=== PATIENT | female | born 1940 | race Caucasian/White ===

== ENCOUNTER 2017-12-26 10:46 | Emergency (ER) | payer MEDICARE ==
[~2017-12-26] VITALS: Ht 154.9 cm; Wt 45.5 kg
[~2017-12-26 10:46] MED LIST: CARV-50 PO; CELE-193 PO; CYCL10TA10 PO; DESL5TAB PO; ENZY1CAP5 PO; FLUT1DIS4 INH; FURO40TA4 PO; POTA20TA10 PO; PRIM50TA42 PO; RIVA15TA PO; TRACE MINERAL PO
[2017-12-26 11:24] LABS: BASOPHILS % (AUTO) 0.8 % (0-1); EOSINOPHILS # (AUTO) 0.4 X10'3 (0-0.9); EOSINOPHILS % (AUTO) 7.7 % (0-6); HEMATOCRIT 35.8 % (35.0-45.0); HEMOGLOBIN 12.4 g/dl (12.0-16.0); LYMPHOCYTES # (AUTO) 0.9 X10'3 (1.1-4.8); LYMPHOCYTES % (AUTO) 15.3 % (21-51); MEAN CORPUSCULAR HEMOGLOBIN 32.6 PG (27.0-31.0); MEAN CORPUSCULAR HGB CONC 34.6 % (33.0-36.5); MEAN CORPUSCULAR VOLUME 94.4 FL (78-98); MONOCYTES # (AUTO) 0.8 X10'3 (0-0.9); MONOCYTES % (AUTO) 13.7 % (2-12); NEUTROPHILS # (AUTO) 3.5 X10'3 (1.8-7.7); NEUTROPHILS % (AUTO) 62.5 % (42-75); PLATELET COUNT 208 X10'3 (140-440); RED CELL DISTRIBUTION WIDTH 13.8 % (11.5-14.5); WHITE BLOOD COUNT 5.6 X10'3 (4.5-11.0)
[2017-12-26 11:53] LABS: ALANINE AMINOTRANSFERASE 30 U/L (12-78); ALBUMIN 3.9 G/DL (3.4-5.0); ALBUMIN/GLOBULIN RATIO 1.1 (1.1-1.5); ALKALINE PHOSPHATASE 63 IU/L (46-116); ANION GAP 10 (8-16); ASPARTATE AMINO TRANSFERASE 21 U/L (10-37); BILIRUBIN,TOTAL 0.3 MG/DL (0.1-1.0); BLOOD UREA NITROGEN 24 MG/DL (7-18); BUN/CREATININE RATIO 26.7 (6.6-38.0); CALCIUM 9.1 MG/DL (8.5-10.1); CHLORIDE 107 MMOL/L (99-107); GLUCOSE 96 MG/DL (70-104); LIPASE 161 U/L (73-393); MAGNESIUM 2.1 MG/DL (1.5-2.4); POTASSIUM 4.4 MMOL/L (3.5-5.1); SODIUM 144 MMOL/L (135-145); TOTAL CARBON DIOXIDE 27.3 MMOL/L (24-32); TOTAL PROTEIN 7.6 G/DL (6.4-8.2); eGFR 61 ML/MIN
[2017-12-26] MEDS ORDERED: hydrALAZINE 20mg/ml inj. IV ONE (12:45)
[2017-12-26 13:56] VITALS: BP 174/72
== END 2017-12-26 14:01 | disposition home or self-care (01) ==
LOC: ER 10:47
DX: I10 Essential (primary) hypertension (principal); I48.91 Unspecified atrial fibrillation; J45.909 Unspecified asthma, uncomplicated; M19.90 Unspecified osteoarthritis, unspecified site; Z91.011 Allergy to milk products; Z79.899 Other long term (current) drug therapy; Z88.6 Allergy status to analgesic agent
CPT/HCPCS: 36415; 71045; 80053; 83690; 83735; 83880; 84484; 85025; 93005; 96374; 99285; J0360

== ENCOUNTER 2018-02-02 20:10 | Emergency (ER) | payer MEDICARE ==
[~2018-02-02] VITALS: Ht 154.9 cm; Wt 44.0 kg
[2018-02-02 20:50] VITALS: BP 189/74
== END 2018-02-02 20:52 | disposition home or self-care (01) ==
LOC: ER 20:11
DX: I10 Essential (primary) hypertension (principal); I48.91 Unspecified atrial fibrillation; J45.909 Unspecified asthma, uncomplicated; Z88.6 Allergy status to analgesic agent; Z88.8 Allergy status to other drugs, medicaments and biological substances; Z91.011 Allergy to milk products; Z79.899 Other long term (current) drug therapy
CPT/HCPCS: 99284

== ENCOUNTER 2018-06-24 10:54 | Emergency (ER) | payer MEDICARE ==
[~2018-06-24] VITALS: Ht 154.9 cm; Wt 40.9 kg
[2018-06-24] MEDS ORDERED: acetaminophen 325mg tablet PO ONE (12:05)
[2018-06-24] MEDS ORDERED: LIDOcaine 1.5% w/epinephrine 1:200,000 5ml ampul IJ ONE (12:20)
[2018-06-24] MEDS ORDERED: TETanus/Pertussis (Acell)/Diphther VAC/PF (Tdap-Adult) 0.5ml syringe IM ONE (12:20)
[2018-06-24] MEDS ORDERED: bacitracin 15gm ointment TP ONE (13:45)
[2018-06-24 14:32] VITALS: BP 152/93
== END 2018-06-24 14:35 | disposition home or self-care (01) ==
LOC: ER 10:54
DX: S06.0X0A Concussion without loss of consciousness, initial encounter (principal); S01.81XA Laceration without foreign body of other part of head, initial encounter; S16.1XXA Strain of muscle, fascia and tendon at neck level, initial encounter; I48.91 Unspecified atrial fibrillation; I10 Essential (primary) hypertension; J45.909 Unspecified asthma, uncomplicated; M19.90 Unspecified osteoarthritis, unspecified site; Z88.1 Allergy status to other antibiotic agents; Z88.8 Allergy status to other drugs, medicaments and biological substances; Z91.011 Allergy to milk products; Z79.899 Other long term (current) drug therapy; W01.0XXA Fall on same level from slipping, tripping and stumbling without subsequent striking against object, initial encounter; Y93.89 Activity, other specified; Y92.002 Bathroom of unspecified non-institutional (private) residence as the place of occurrence of the external cause; Y99.8 Other external cause status
CPT/HCPCS: 12051; 70450; 72125; 90471; 90715; 93005; 99284; A6449; J3490

== ENCOUNTER 2018-10-17 11:03 | Emergency (ER) | payer MEDICARE ==
[~2018-10-17] VITALS: Ht 153.7 cm; Wt 45.0 kg
[2018-10-17 11:11] VITALS: BP 131/95
--- NOTE | 2018-10-17 11:26 | NUR ---
PT. CAME WITH A DISC WITH X-RAYS ON IT. DISC GIVEN TO X-RAY
[2018-10-17] MEDS ORDERED: HYDROcodone/acetaminophen 10/325mg tab PO ONE (11:40)
[2018-10-17] MEDS ORDERED: DOCU-28 PO (12:15)
[2018-10-17] MEDS ORDERED: HYDR-4383 PO (12:15)
== END 2018-10-17 13:02 | disposition home or self-care (01) ==
LOC: ER 11:05
DX: S52.592A Other fractures of lower end of left radius, initial encounter for closed fracture (principal); S52.692A Other fracture of lower end of left ulna, initial encounter for closed fracture; I48.91 Unspecified atrial fibrillation; I10 Essential (primary) hypertension; J45.909 Unspecified asthma, uncomplicated; M19.90 Unspecified osteoarthritis, unspecified site; Z88.6 Allergy status to analgesic agent; Z88.1 Allergy status to other antibiotic agents; Z91.011 Allergy to milk products; Z79.899 Other long term (current) drug therapy; W19.XXXA Unspecified fall, initial encounter; Y93.89 Activity, other specified; Y92.89 Other specified places as the place of occurrence of the external cause; Y99.9 Unspecified external cause status
CPT/HCPCS: 29125; 99284